=== PATIENT | male | born 1955 | race Two or more races ===

== ENCOUNTER 2017-03-19 16:18 | Emergency (ER) | payer MEDICAID ==
[~2017-03-19] VITALS: Ht 167.6 cm; Wt 76.2 kg
[2017-03-19] MEDS ORDERED: IBUPROFEN600 MG ORAL (17:27)
[2017-03-19] MEDS ORDERED: TRAMADOL HCL50 MG ORAL (17:27)
[2017-03-19 17:45] VITALS: BP 143/83
--- NOTE | 2017-03-19 18:07 | Emergency Room Report ---
History of Present Illness General Chief Complaint: General Complaint Source: Patient Present Illness HPI The patient is a 61-year-old male presenting for left knee pain. The patient states that he had a fracture with ORIF years prior. he denies any complications after the surgery. He states that he has been climbing up and down ladders recently which has caused pain. He denies any pain at rest but describes a 5/10 dull ache to the left knee with walking. Does not radiate. He denies any other symptoms such as fever, chills, calf pain, numbness/tingling, CP, SOB Allergies: Coded Allergies: No Known Allergies (Unverified , 03/19/17) Patient History Past Medical History: see triage record Pertinent Family History: none Reviewed Nursing Documentation: PMH: Agreed, PSxH: Agreed Nursing Documentation-PMH Hx Cardiac Problems: No - left knee surgery Review of Systems All Other Systems: negative except mentioned in HPI Physical Exam Vital Signs Date Time Temp Pulse Resp B/P (MAP) Pulse Ox O2 Delivery O2 Flow Rate FiO2 03/19/17 16:41 98.1 56 19 117/68 98 Room Air Sp02 EP Interpretation: reviewed, normal General Appearance: no apparent distress, alert, GCS 15, non-toxic Head: normocephalic, atraumatic Eyes: bilateral eye normal inspection, bilateral eye PERRL ENT: hearing grossly normal, normal pharynx, no angioedema, normal voice Neck: full range of motion, supple/symm/no masses Musculoskeletal: normal range of motion, tender - TTP over the L lateral knee. Neurologic: alert, oriented x3, responsive, motor strength/tone normal, sensory intact, speech normal Psychiatric: judgement/insight normal, memory normal, mood/affect normal, no suicidal/homicidal ideation Skin: no rash, normal turgor, other - midline scar L knee Lymphatic: no adenopathy Medical Decision Making PA Attestation Dr. Quinonez is my supervising physician. Patient management was discussed with my supervising physician Diagnostic Impression: Primary Impression: Knee pain, left Qualified Codes: M25.562 - Pain in left knee ER Course The patient is a 61-year-old male presenting for left knee pain. Ddx considered include but not limited to sprain/strain, fracture, contusion, hardware failure, osteomyelitis, among others PE: NAD Left knee has a midline surgical scar with tenderness to palpation over the lateral aspect. Full active range of motion. No edema. Skin is warm and dry X-ray of the left knee shows hardware in place with degenerative changes and old fracture. No acute findings. The pt has knee sleeve on. He is given xrays on disc and will FU with PMD trace in order to seek orthopedic care. ER precautions given Other X-Ray Diagnostic Results Other X-Ray Diagnostic Results : X-Ray ordered: L knee # of Views/Limited Vs Complete: 3 View Indication: Pain EP Interpretation: Yes Interpretation: no dislocation, no soft tissue swelling, no fractures Impression: No acute disease Interpreting ER Provider: Sawyer Quinonez MD PA Scribe Text I am acting as scribe for my supervising physician. My supervising physician's interpretation of the Dr. Quinonez xrays are there are no fractures, dislocations or soft tissue swelling. Hardware in place. Degenerative changes. Last Vital Signs Date Time Temp Pulse Resp B/P (MAP) Pulse Ox O2 Delivery O2 Flow Rate FiO2 03/19/17 16:41 98.1 56 19 117/68 98 Room Air Status: improved Disposition: HOME, SELF-CARE Condition: Improved Scripts Tramadol Hcl* (ULTRAM*) 50 Mg Tablet 50 MG ORAL Q6H Y for For Pain, #10 TAB 0 Refills Prov: MANUEL PERRY 03/19/17 Ibuprofen* (MOTRIN*) 600 Mg Tablet 600 MG ORAL Q6H Y for For Pain, #30 TAB Prov: MANUEL PERRY 03/19/17 Referrals: [facility] (PCP) Patient Instructions: Knee Pain Additional Instructions: I discussed my findings with the patient. All questions and concerns have been answered. Treatment and medication compliance have been addressed. I advised the patient that they need to follow up with PMD in 3-5 days. Return to ED if pain remains or worsens, numbness or tingling occurs, new rash is noticed, fever is noticed, or if needed for any reason. Patient verbalized understanding of discharge instructions. MANUEL PERRY Mar 19, 2017 18:07
--- NOTE | 2017-03-21 08:40 | Diagnostic Imaging Report ---
Indication: PAIN Technique: 3 views of the left knee Comparison: None Findings:There is evidence of prior surgery, with a staple seen in the lateral femoral condyle. Is evidence of prior ACL surgery. There are numerous intra-articular loose bodies. There is mild degenerative narrowing of the medial and lateral and patellofemoral joint compartments. No definite effusion. No acute fractures. No dislocations. There is evidence of old healed proximal fibular shaft fracture Impression:No acute bony trauma Post surgical changes, as described Degenerative changes, as described Evidence of multiple intra-articular loose bodies. Evidence of old healed proximal fibular fracture This agrees with the preliminary interpretation [facility].
== END 2017-03-19 17:45 | disposition home or self-care (01) ==
LOC: EMR 17:00
DX: M25.562 Pain in left knee (principal)
CPT/HCPCS: 99284

== ENCOUNTER → 2019-06-21 | Emergency (ER) | payer MEDICAID ==
[~2019-06-21] VITALS: Ht 167.6 cm; Wt 79.4 kg
[~2019-06-21] MED LIST: Heparin 5000 units/ml inj IV ONE; IBUPROFEN600 MG ORAL; Nitroglycerin Subl 0.4mg tab SL PRN; TRAMADOL HCL50 MG ORAL
[2019-06-21 19:43] VITALS: BP 151/99
[2019-06-21 19:50] VITALS: BP 151/99
--- NOTE | 2019-06-21 20:01 | Emergency Room Report ---
History of Present Illness General Chief Complaint: Chest Pain Source: Patient Present Illness HPI 63-year-old male presents the ED for evaluation. Patient complaining of chest pain which started today while working. Around 2 PM. Midsternal, 5 out of 10, pressure, nonradiating. Denies shortness of breath. Still has having chest pain at this time. States he had a similar pain on Wednesday which lasted only for a few minutes then subsided. Denies history of hypertension or diabetes. Denies smoking or drug use. No other aggravating relieving factors. Denies any other associated symptoms Allergies: Coded Allergies: No Known Allergies (Unverified , 03/19/17) Patient History Past Medical History: none Past Surgical History: none Pertinent Family History: none Social History: Denies: smoking, alcohol use, drug use Immunizations: UTD Reviewed Nursing Documentation: PMH: Agreed; PSxH: Agreed Nursing Documentation-PMH Past Medical History: No Stated History Hx Cardiac Problems: No - left knee surgery Review of Systems All Other Systems: negative except mentioned in HPI Physical Exam Vital Signs Date Time Temp Pulse Resp B/P (MAP) Pulse Ox O2 Delivery O2 Flow Rate FiO2 06/21/19 19:12 98.1 54 18 152/91 (111) 97 Room Air Sp02 EP Interpretation: reviewed, normal General Appearance: no apparent distress, alert, GCS 15, non-toxic Head: normocephalic, atraumatic Eyes: bilateral eye normal inspection, bilateral eye PERRL ENT: hearing grossly normal, normal pharynx, no angioedema, normal voice Neck: full range of motion, supple/symm/no masses Respiratory: chest non-tender, lungs clear, normal breath sounds, speaking full sentences Cardiovascular #1: regular rate, rhythm, no edema Cardiovascular #2: 2+ carotid (R), 2+ carotid (L), 2+ radial (R), 2+ radial (L) , 2+ dorsalis pedis (R), 2+ dorsalis pedis (L) Gastrointestinal: normal bowel sounds, non tender, soft, non-distended, no guarding, no rebound Rectal: deferred Genitourinary: normal inspection, no CVA tenderness Musculoskeletal: back normal, normal range of motion, gait/station normal, non- tender Neurologic: alert, motor strength/tone normal, oriented x3, sensory intact, responsive, speech normal Psychiatric: judgement/insight normal, memory normal, mood/affect normal, no suicidal/homicidal ideation Reflexes: 3+ bicep (R), 3+ bicep (L), 3+ tricep (R), 3+ tricep (L), 3+ knee (R) , 3+ knee (L) Lymphatic: no adenopathy Procedures Critical Care Time Critical Care Time i. I feel this is a highly complex case requiring extensive working including EKG/Rhythm strip, Xray/CT/US, Blood/urine lab work, repeat exams while in ED, and administration of strong opiates/narcotics for pain control, admission to hospital or close patient follow up. Total time: 30 min bedside evaluation and treatment excludes procedures (EKG). Reason for critical care: STEMI Possible complications: hypotension, hypertension, NJ, shock, arrhythmias, metabolic acidosis, end organ damage, respiratory failure. Interventions: labs, EKG, CXR, nitro, asa, plavix, heparin, discussion with cardiology at [facility] Course: Patient presenting with chest pain since [address] elevations in anterior leads with reciprocal changes. Discussed with [facility] and agree that this is a STEMI. Given aspirin. Given nitro. Given Plavix and heparin. discussed with family and patient. 911 to take patient to [facility] Consultations: nursing staff, EMS, family Performed by: Dr Quinonez Tolerated well condition = critical j. because of unstable vital signs this patient had a condition that could potentially threaten life or limb. I feel this is a critical patient who required my full attention while patient was considered critical. Total Critical Care Time excluding procedures was greater than 35 minutes Medical Decision Making Diagnostic Impression: Primary Impression: STEMI (ST elevation myocardial infarction) Qualified Codes: I21.3 - ST elevation (STEMI) myocardial infarction of unspecified site Additional Impression: Chest pain Qualified Codes: R07.9 - Chest pain, unspecified ER Course Hospital Course 63 yo M prsents with chest pain Differential diagnoses include: NJ/unstable angina, contusion, muscle strain, PTX, rib fracture Clinical course Patient placed on stretcher. After initial history and physical I ordered labs , IV fluids, UA, EKG and chest x-ray EKG- ST elevations in anterior leads, reciprocal changes noted Chest x-ray- no acute process discussed with [facility]. Agrees that this is a STEMI. Requires transfer for higher level of care. Given aspirin. Given Plavix. Given heparin loading dose. 911 called to take patient to [facility] I. I feel this is a highly complex case requiring extensive working including EKG/Rhythm strip, Xray/CT/US, Blood/urine lab work, repeat exams while in ED, and administration of strong opiates/narcotics for pain control, admission to hospital or close patient follow up. Diagnosis - NSTEMI Transferred [facility] critical condition EKG Diagnostic Results Rate: normal Rhythm: NSR ST Segments: other - ST elevations in anterior leads, reciprocal changes noted ASA given to the pt in ED: Yes Rhythm Strip Diag. Results EP Interpretation: yes Rhythm: NSR, no PVC's Chest X-Ray Diagnostic Results Chest X-Ray Diagnostic Results : Chest X-Ray Ordered: Yes Indication: Chest Pain EP Interpretation: Yes Interpretation: no consolidation, no effusion, no pneumothorax, no acute cardiopulmonary disease Impression: No acute disease Electronically Signed by: Electronically signed by Sawyer Quinonez MD Last Vital Signs Date Time Temp Pulse Resp B/P (MAP) Pulse Ox O2 Delivery O2 Flow Rate FiO2 06/21/19 19:50 151/99 06/21/19 19:43 98.1 64 11 100 Room Air Status: improved Disposition: XFER SHT-TRM HOSP Condition: Critical Referrals: [facility] (PCP) Sawyer Quinonez MD Jun 21, 2019 20:01
[2019-06-21 20:09] LABS: ANION GAP 5 mmol/L (5-15); BLOOD UREA NITROGEN 18 mg/dL (7-18); CALCIUM 9.2 MG/DL (8.5-10.1); CARBON DIOXIDE 33 MMOL/L (21-32); CHLORIDE 102 MMOL/L (98-107); CREATININE 1.2 MG/DL (0.55-1.30); SODIUM 140 MMOL/L (136-145)
[2019-06-21 20:14] LABS: BASOPHILS % (AUTO) 0.4 % (0.0-2.0); EOSINOPHILS % (AUTO) 0.3 % (0.0-3.0); HEMATOCRIT 42.8 % (42.0-52.0); HEMOGLOBIN 15.2 G/DL (14.2-18.0); LYMPHOCYTES % (AUTO) 13.5 % (20.0-45.0); MEAN CORPUSCULAR VOLUME 83 FL (80-99); MONOCYTES % (AUTO) 5.4 % (1.0-10.0); NEUTROPHILS % (AUTO) 80.4 % (45.0-75.0); PLATELET COUNT 212 K/UL (150-450); RED BLOOD COUNT 5.18 M/UL (4.70-6.10); RED CELL DISTRIBUTION WIDTH 10.9 % (11.6-14.8); WHITE BLOOD COUNT 12.5 K/UL (4.8-10.8)
[2019-06-21 20:20] LABS: ALANINE AMINOTRANSFERASE 46 U/L (12-78); ALBUMIN 4.5 G/DL (3.4-5.0); ALBUMIN/GLOBULIN RATIO 1.1 (1.0-2.7); ALKALINE PHOSPHATASE 88 U/L (46-116); ASPARTATE AMINO TRANSFERASE 43 U/L (15-37); BILIRUBIN,TOTAL 0.4 MG/DL (0.2-1.0)
[2019-06-21 20:23] LABS: INR 0.9 (0.9-1.1)
--- NOTE | 2019-06-22 12:47 | Cardiology Report ---
APPROVED REPORT EKG Measurement Heart [id number] Normal sinus rhythm Inferolateral infarct, probably acute Consider right ventricular involvement in acute inferior infarct Abnormal ECG
--- NOTE | 2019-06-22 17:03 | Diagnostic Imaging Report ---
Indication: Chest pain Technique: One view of the chest Comparison: none Findings: Lungs and pleural spaces are clear. Heart size is normal. Impression: No acute process
== END | disposition short-term general hospital (02) ==
LOC: EMR 19:50 → CANBEDREQ 20:11
DX: I21.3 ST elevation (STEMI) myocardial infarction of unspecified site (principal); R07.9 Chest pain, unspecified
CPT/HCPCS: 36415; 71045; 80053; 83880; 84484; 85025; 85610; 85730; 93005; 96361; 96374; J1644; J7030; Z7502; 99284